=== PATIENT | female | born 1965 | race Caucasian/White ===

== ENCOUNTER 2017-01-06 04:13 | Observation (INO) | payer MEDICARE, MEDICAID ==
[~2017-01-06 04:13] MED LIST: AMBIEN10 M1 PO; AMBIEN10 MG; AMBIEN10 MG PO; AMOXIL500 M1 PO; ASPIRIN325 M1 PO; ATENOLOL/CHLORT1 TAB; ATENOLOL100 MG; ATENOLOL25 MG; ATENOLOL50 MG; ATIVAN0.5 M1 PO; BACTRIM DS TABL1 TAB PO; BACTROBAN22 G1; CALCIUM 500 +1 EA10 PO; CALCIUM 500 +1 EAC5 PO; CALCIUM600 MG PO; CATAPRES0.2 M1 PO; CATAPRES0.2 MG PO; CLARITIN10 MG; CLONIDINE HCL0.1 MG PO; CLONIDINE HCL0.2 MG PO; CLONIDINE HCL0.3 MG PO; COLCHICINE0.6 MG PO; DILAUDID2 MG PO; FENTANYL1 EAC1 TD; FENTANYL1 EAC3 TD; FENTANYL1 PATCH . TOP; FLEXERIL10 MG PO; FOSAMAX10 MG PO; HYDROCHLOROTHIA25 MG; HYDROCODON-ACE1 EAC1 PO; HYDROCODONE/APA1 CAP; KEFLEX500 MG PO; LASIX20 M1 PO; LIDODERM30 EA TP; LISINOPRIL40 MG PO; LOPRE25 PO; LORTAB 5/500 TA1 TAB PO; LOTREL 10/20 MG1 CAP; LOTREL 5/20 MG1 CAP; METOPROLOL TART25 M1 PO; METOPROLOL TART25 MG PO; MOBIC7.5 MG; NAPROXEN500 MG PO; NORCO 5/325 TAB1 TAB; NORCO 5/325 TAB1 TAB PO; NORVASC10 M1 PO; NORVASC10 M2 PO; NORVASC10 MG PO; NORVASC2.5 MG PO; OXYBUTYNIN; OXYBUTYNIN CHLOR5 MG PO; OXYCODON-ACETA1 EAC1 PO; OXYCODON-ACETA1 EAC4 PO; OXYCODONE HCL10 M2 PO; OXYCODONE/APAP; OXYCONTIN10 M1 PO; PERCOCET 10/31 UDTAB PO; PERCOCET 5/3251 TAB PO; PERCOCET 5MG/AP1 TA1 PO; PERCOCET 7.5-31 EACH PO; PERCOCET 7.5/1 UDTAB PO; POTASSIUM CHLO10 MEQ PO; SODIUM PO; TOPROL XL50 MG PO; TYLENOL #31 TA1 PO; TYLENOL W/CODEI1 TAB PO; VANCOMYCIN1.25 GM/25 IV; VITAMIN D32000 UNI1 PO; VITAMIN D32000 UNI3 PO; VITAMIN D50000 UNIT PO; ZESTRIL40 M1 PO; [UNRECOGNIZED DRUG - REMARK]
[2017-01-06 05:01] LABS: EOS % 0.5 % (0-7); HCT-HEMATOCRIT 42.5 % (34.0-49.0); HGB-HEMOGLOBIN 15.4 gm/dl (12.0-15.5); IMMATURE GRANULOCYTES ABSOLUTE 0.04 tho/cmm (0-0.03); IMMATURE GRANULOCYTES PERCENT 0.7 % (0-0.3); LYMPH % 14.3 % (20-45); LYMPH ABSOLUTE COUNT 0.9 tho/cmm (0.8-4.5); MCH (MEAN CORPUSCULAR HGB) 34.7 pg (28.0-32.0); MCHC MEAN CORPUSCULAR HGB CONC 36.2 % (32.0-36.0); MCV (MEAN CELL VOLUME) 95.7 fl (82.0-96.0); MEAN PLATELET VOLUME 8.9 cmc (9.4-12.4); MONO % 9.2 % (0-12); MONOCYTE ABSOLUTE COUNT 0.6 tho/cmm (0.0-1.2); NEUTROPHIL ABSOLUTE COUNT 4.6 tho/cmm (1.6-8.0); NEUTROPHIL-AUTOMATED 4.6 tho/cmm (1.6-8.0); NEUTROPHILS % 75.3 % (40-80); PLATELET COUNT 167 tho/cmm (150-450); RED BLOOD COUNT 4.44 mil/cmm (4.00-5.20); RED CELL DISTRIBUTION WIDTH 13.3 % (12.4-16.4); WHITE BLOOD COUNT 6.1 tho/cmm (4.0-10.0)
[2017-01-06 05:13] LABS: ALB/GLOB RATIO 0.9 (0.8-2.0); ALBUMIN 3.5 g/dl (3.5-5.0); ALKALINE PHOSPHATASE 138 U/L (33-138); ALT/SGPT 46 U/L (12-78); ANION GAP 10 mmol/L (0-20); AST/SGOT 33 U/L (10-40); BILIRUBIN,TOTAL 0.5 mg/dl (0-1.5); BLOOD UREA NITROGEN 11 mg/dl (6-24); CALCIUM 9.2 mg/dl (8.5-10.5); CARBON DIOXIDE-VENOUS 29 mmol/L (22-32); CHLORIDE 98 mmol/l (96-110); CREATININE 0.76 mg/dl (0.50-1.10); GLUCOSE 112 mg/dL (70-110); LIPASE 153 U/L (73-393); POTASSIUM 3.7 mmol/L (3.7-5.1); SODIUM 133 mmol/L (135-145); eGFR VALUE FOR BLACK >90 mL/Min
[2017-01-06] MEDS ORDERED: DURAGESIC1 EAC3 TP (08:31)
[2017-01-06] MEDS ORDERED: OMEPRAZOLE20 M3 PO (08:31)
[2017-01-06] MEDS ORDERED: NEURONTIN100 M1 PO (08:32)
[2017-01-06] MEDS ORDERED: VENTOLIN HFA18 G2 PO (08:33)
[2017-01-06] MEDS ORDERED: ELIQUIS5 M1 PO (08:33)
[2017-01-06] MEDS ORDERED: ZOCOR20 M1 PO (08:33)
== END 2017-01-06 12:42 ==
LOC: EDMED 04:13 → EMR2 11:55 → CAR1 11:59
PROVIDERS: Emergency Medicine; ADMIT Hospitalist
DX: H81.10 Benign paroxysmal vertigo, unspecified ear (principal); I10 Essential (primary) hypertension; G89.29 Other chronic pain; R00.2 Palpitations; M19.90 Unspecified osteoarthritis, unspecified site; F60.9 Personality disorder, unspecified; M79.7 Fibromyalgia; M81.0 Age-related osteoporosis without current pathological fracture; D50.8 Other iron deficiency anemias; Z98.890 Other specified postprocedural states; Z96.651 Presence of right artificial knee joint; Z79.899 Other long term (current) drug therapy; Z79.891 Long term (current) use of opiate analgesic
CPT/HCPCS: J2060; J2405; J7030